=== PATIENT | female | born 1985 | race Caucasian/White ===

== ENCOUNTER 2018-02-13 07:43 | Emergency (ER) | payer MEDICAID ==
[2018-02-13] MEDS: METHYLPREDNISOLONE 125 MG INJ IM (08:21)
== END 2018-02-13 09:00 | disposition home or self-care (01) ==
LOC: FTE 07:43
DX: R21 Rash and other nonspecific skin eruption (principal); R40.2412 Glasgow coma scale score 13-15, at arrival to emergency department; Z91.040 Latex allergy status
CPT/HCPCS: 96372; 99284-25